=== PATIENT | female | born 1950 | race Caucasian/White ===

== ENCOUNTER 2022-01-24 17:54 | Inpatient (IN) | payer MEDICARE, MEDICAID ==
[~2022-01-24] VITALS: Ht 165.1 cm; Wt 62.6 kg
[2022-01-24 19:32] LABS: BASOPHILS % 0.4 % (0.0-2.0); EOSINOPHILS % 0.2 % (0.0-5.0); HEMATOCRIT. 48.4 % (36.0-48.0); HEMOGLOBIN. 17.1 g/dL (12.0-16.0); MEAN CORPUSCULAR HEMOGLOBIN 32.2 pg (28.0-32.0); MEAN CORPUSCULAR VOLUME 90.8 fL (81.0-99.0); MEAN PLATELET VOLUME 7.2 fl (7.4-10.4); MONOCYTES % 4.9 % (2.0-8.0); NEUTROPHILS % 83.5 % (40.0-76.0); PLATELET 429 x1000/uL (130-400); RED BLOOD CELL COUNT 5.32 mill/uL (4.2-5.4); RED CELL DISTRIBUTION WIDTH 13.4 % (11.6-14.6)
[2022-01-24 19:41] LABS: CHLORIDE 98 mEq/L (98-107)
[2022-01-24] MEDS ORDERED: MAGNESIUM HYDROXIDE 400MG/5ML 30ML UDC PO ONE (20:00)
[2022-01-24] MEDS ORDERED: MINERAL OIL 30ML BOTTLE PO ONE (20:00)
[2022-01-24] MEDS ORDERED: SODIUM CHLORIDE 0.9% 1,000 ML IV ONE (20:00)
[2022-01-24] MEDS ORDERED: MAGNESIUM CITRATE 300ML SOLUTION PO ONE (20:00)
[2022-01-24] MEDS ORDERED: POTASSIUM CHLORIDE INJ 40 MEQ in DEXT 5% WATER 500 ML IV ONE (20:00)
[2022-01-25] MEDS ORDERED: MAGNESIUM HYDROXIDE 400MG/5ML 30ML UDC PO NR (01:00)
[2022-01-25] MEDS ORDERED: GUAIFENESIN 200MG/10ML SUGAR FREE UDC PO PRN (04:00)
[2022-01-25] MEDS ORDERED: HYDRALAZINE 20MG/ML VIAL IV PRN (04:00)
[2022-01-25] MEDS ORDERED: ONDANSETRON HCL 4MG/2ML INJ IV PRN (04:00)
[2022-01-25] MEDS ORDERED: ACETAMINOPHEN 325MG TABLET PO PRN (04:00)
[2022-01-25] MEDS ORDERED: TRAZODONE HCL 50MG TABLET PO PRN (04:15)
[2022-01-25 04:39] VITALS: BP 155/94
[2022-01-25] MEDS ORDERED: DIGO125T80 MT (05:41)
[2022-01-25] MEDS ORDERED: INSU100I28 SQ (05:41)
[2022-01-25] MEDS ORDERED: ATOR20TA MT (05:41)
[2022-01-25] MEDS ORDERED: DILT60TA3 MT (05:41)
[2022-01-25] MEDS ORDERED: ASPI-1497 MT (05:41)
[2022-01-25] MEDS ORDERED: METH-371 MT (05:41)
[2022-01-25] MEDS ORDERED: KEPP500 MT (05:41)
[2022-01-25] MEDS ORDERED: LACTATED RINGERS 1,000 ML IV SCH (06:30)
[2022-01-25 08:00] VITALS: BP 166/71
[2022-01-25 08:30] LABS: BASOPHILS % 0.3 % (0.0-2.0); EOSINOPHILS % 0.2 % (0.0-5.0); HEMATOCRIT. 50.1 % (36.0-48.0); HEMOGLOBIN. 17.1 g/dL (12.0-16.0); LYMPHOCYTES % 12.7 % (20.0-50.0); MEAN CORPUSCULAR HEMOGLOBIN 31.7 pg (28.0-32.0); MEAN CORPUSCULAR VOLUME 92.7 fL (81.0-99.0); MEAN PLATELET VOLUME 7.4 fl (7.4-10.4); MONOCYTES % 5.4 % (2.0-8.0); NEUTROPHILS % 81.4 % (40.0-76.0); PLATELET 387 x1000/uL (130-400); RED BLOOD CELL COUNT 5.41 mill/uL (4.2-5.4); RED CELL DISTRIBUTION WIDTH 13.4 % (11.6-14.6)
[2022-01-25 08:50] LABS: CHLORIDE 100 mEq/L (98-107)
[2022-01-25] MEDS: BISACODYL 10MG SUPP PR SCH ×2 (09:00→09:39)
[2022-01-25] MEDS ORDERED: POTASSIUM CHLORIDE 20MEQ TABLET SR PO NR (11:30)
[2022-01-25] MEDS ORDERED: LACTULOSE 20G/30ML UDC PO PRN (11:30)
[2022-01-25 12:00] VITALS: BP 148/83
[2022-01-25] MEDS ORDERED: BISACODYL 10MG SUPP PR NR (12:00)
[2022-01-25] MEDS ORDERED: ENOXAPARIN 30MG/0.3ML SYR SUBCUT SCH (12:00)
[2022-01-25] MEDS: SODIUM CHLORIDE 0.45% 1,000 ML IV SCH (13:18)
[2022-01-25 16:00] VITALS: BP 146/95
[2022-01-25] MEDS ORDERED: LEVE500T98 PO (17:44)
[2022-01-25] MEDS ORDERED: METH-371 PO (17:44)
[2022-01-25 20:00] VITALS: BP 136/101
[2022-01-25] MEDS ORDERED: DEXTROSE 50% WATER 50ML SYRINGE IV PRN (21:00)
[2022-01-25] MEDS: IPRATROPIUM/ALBUTEROL 0.5-3(2.5)MG/3ML NEB HHN SCH (21:05)
[2022-01-25] MEDS: ATORVASTATIN CALCIUM 20MG TABLET PO SCH (21:51)
[2022-01-25] MEDS: LEVETIRACETAM 500MG TABLET PO SCH (21:52)
[2022-01-25] MEDS: BLOOD SUGAR DIAGNOSTIC STRIP TEST SCH (21:52)
[2022-01-25] MEDS: INSULIN LISPRO 100 UNITS/ML SUBCUT SCH (21:55)
[2022-01-25] MEDS: DILTIAZEM HCL 60MG TABLET PO SCH (21:56)
[2022-01-25] MEDS: METHIMAZOLE 5MG TABLET PO SCH (21:57)
[2022-01-26] VITALS: BP 158/77
[2022-01-26] MEDS: IPRATROPIUM/ALBUTEROL 0.5-3(2.5)MG/3ML NEB HHN SCH ×5 (00:54→20:47)
[2022-01-26] MEDS: ENOXAPARIN 60MG/0.6ML SYR SUBCUT SCH ×2 (01:02→21:33)
[2022-01-26 04:00] VITALS: BP 137/68
[2022-01-26] MEDS: SODIUM CHLORIDE 0.45% 1,000 ML IV SCH ×2 (05:26→21:05)
[2022-01-26] MEDS: DILTIAZEM HCL 60MG TABLET PO SCH ×3 (05:32→22:37)
[2022-01-26] MEDS: BLOOD SUGAR DIAGNOSTIC STRIP TEST SCH ×4 (06:59→21:18)
[2022-01-26] MEDS: INSULIN LISPRO 100 UNITS/ML SUBCUT SCH ×4 (07:50→21:19)
[2022-01-26 08:00] VITALS: BP 132/68
[2022-01-26] MEDS: BISACODYL 10MG SUPP PR SCH (09:00)
[2022-01-26] MEDS: ASPIRIN 81MG TABLET PO SCH (09:23)
[2022-01-26] MEDS: LEVETIRACETAM 500MG TABLET PO SCH ×2 (09:23→21:18)
[2022-01-26 10:45] LABS: HEMOGLOBIN. 16.8 g/dL (12.0-16.0); MEAN CORPUSCULAR HEMOGLOBIN 32.1 pg (28.0-32.0); MEAN CORPUSCULAR VOLUME 93.5 fL (81.0-99.0); MEAN PLATELET VOLUME 7.5 fl (7.4-10.4); PLATELET 450 x1000/uL (130-400); RED BLOOD CELL COUNT 5.24 mill/uL (4.2-5.4)
[2022-01-26 12:00] VITALS: BP 109/63
[2022-01-26 13:30] LABS: PLATELET ESTIMATE INCREASED
[2022-01-26] MEDS: METHIMAZOLE 5MG TABLET PO SCH (14:03)
[2022-01-26 16:00] VITALS: BP 138/75
[2022-01-26] MEDS: DIGOXIN 125MCG TABLET PO SCH (18:54)
[2022-01-26 20:00] VITALS: BP 146/69
[2022-01-26] MEDS: ATORVASTATIN CALCIUM 20MG TABLET PO SCH (21:18)
[2022-01-27] VITALS: BP 141/70
[2022-01-27] MEDS: IPRATROPIUM/ALBUTEROL 0.5-3(2.5)MG/3ML NEB HHN SCH ×5 (00:21→20:27)
[2022-01-27 02:35] LABS: CLARITY URINE TURBID (CLEAR); COLOR URINE DARK YELLOW (YELLOW); KETONES URINE NEGATIVE (NEGATIVE); LEUKOCYTE ESTERASE URINE 3+ (NEGATIVE); NITRITE URINE NEGATIVE (NEGATIVE); OCCULT BLOOD URINE 2+ (NEGATIVE); PROTEIN URINE 4+ (NEGATIVE); SPECIFIC GRAVITY URINE 1.021 (1.005-1.030)
[2022-01-27 04:00] VITALS: BP 120/86
[2022-01-27] MEDS: DILTIAZEM HCL 60MG TABLET PO SCH ×3 (05:17→21:31)
[2022-01-27] MEDS: BLOOD SUGAR DIAGNOSTIC STRIP TEST SCH ×4 (06:04→21:31)
[2022-01-27 06:37] LABS: HEMOGLOBIN. 15.5 g/dL (12.0-16.0); LYMPHOCYTES % 7.7 % (20.0-50.0); MEAN CORPUSCULAR VOLUME 92.9 fL (81.0-99.0); MEAN PLATELET VOLUME 7.9 fl (7.4-10.4); MONOCYTES % 7.1 % (2.0-8.0); NEUTROPHILS % 85.2 % (40.0-76.0); PLATELET 408 x1000/uL (130-400); RED BLOOD CELL COUNT 4.85 mill/uL (4.2-5.4); RED CELL DISTRIBUTION WIDTH 14.2 % (11.6-14.6)
[2022-01-27 06:48] LABS: CHLORIDE 94 mEq/L (98-107)
[2022-01-27] MEDS: INSULIN LISPRO 100 UNITS/ML SUBCUT SCH ×4 (07:25→21:33)
[2022-01-27 08:00] VITALS: BP 111/89
[2022-01-27] MEDS: BISACODYL 10MG SUPP PR SCH (09:00)
[2022-01-27] MEDS: LEVETIRACETAM 500MG TABLET PO SCH ×2 (09:04→21:31)
[2022-01-27] MEDS: ASPIRIN 81MG TABLET PO SCH (09:05)
[2022-01-27] MEDS: METHIMAZOLE 5MG TABLET PO SCH (09:05)
[2022-01-27] MEDS ORDERED: CEFTRIAXONE 1 G PREMIX 50 ML IV SCH (10:30)
[2022-01-27 12:00] VITALS: BP 101/56
[2022-01-27] MEDS: SODIUM CHLORIDE 0.9% 1,000 ML IV SCH ×2 (12:48→21:34)
[2022-01-27] MEDS: CEFTRIAXONE 1,000 MG in DEXTROSE 5% WATER 50 ML IV SCH (12:48)
[2022-01-27 16:00] VITALS: BP 110/81
[2022-01-27] MEDS ORDERED: CLOTRIMAZOLE 1% CREAM 15GM TOP ONE (16:45)
[2022-01-27] MEDS: DIGOXIN 125MCG TABLET PO SCH (18:05)
[2022-01-27] MEDS: CLOTRIMAZOLE 1% CREAM 15GM TOP SCH (18:06)
[2022-01-27 18:48] LABS: PROTHROMBIN TIME 10.5 sec (9.6-11.0)
[2022-01-27 20:00] VITALS: BP 146/66
[2022-01-27] MEDS: ENOXAPARIN 60MG/0.6ML SYR SUBCUT SCH (21:24)
[2022-01-27] MEDS: ATORVASTATIN CALCIUM 20MG TABLET PO SCH (21:31)
[2022-01-27] MEDS: INSULIN GLARGINE 100 UNITS/ML SUBCUT SCH (21:34)
[2022-01-28] VITALS: BP 148/34
[2022-01-28] MEDS: IPRATROPIUM/ALBUTEROL 0.5-3(2.5)MG/3ML NEB HHN SCH ×6 (00:42→21:08)
[2022-01-28 04:00] VITALS: BP 130/39
[2022-01-28] MEDS: SODIUM CHLORIDE 0.9% 1,000 ML IV SCH ×2 (06:00→16:45)
[2022-01-28] MEDS: DILTIAZEM HCL 60MG TABLET PO SCH ×3 (06:00→21:33)
[2022-01-28] MEDS: BLOOD SUGAR DIAGNOSTIC STRIP TEST SCH ×4 (06:01→21:32)
[2022-01-28] MEDS: INSULIN LISPRO 100 UNITS/ML SUBCUT SCH ×4 (07:50→21:56)
[2022-01-28 08:00] VITALS: BP 143/55
[2022-01-28] MEDS: BISACODYL 10MG SUPP PR SCH (08:03)
[2022-01-28] MEDS: ASPIRIN 81MG TABLET PO SCH (08:30)
[2022-01-28] MEDS: LEVETIRACETAM 500MG TABLET PO SCH ×2 (08:30→21:32)
[2022-01-28] MEDS: METHIMAZOLE 5MG TABLET PO SCH (08:30)
[2022-01-28] MEDS: CLOTRIMAZOLE 1% CREAM 15GM TOP SCH (08:39)
[2022-01-28 11:23] LABS: HEMATOCRIT. 44.1 % (36.0-48.0); HEMOGLOBIN. 14.5 g/dL (12.0-16.0); MEAN CORPUSCULAR HEMOGLOBIN 31.6 pg (28.0-32.0); MEAN CORPUSCULAR VOLUME 95.8 fL (81.0-99.0); MEAN PLATELET VOLUME 7.9 fl (7.4-10.4); PLATELET 353 x1000/uL (130-400); RED CELL DISTRIBUTION WIDTH 14.3 % (11.6-14.6)
[2022-01-28 11:37] LABS: CHLORIDE 94 mEq/L (98-107)
[2022-01-28 12:00] VITALS: BP 126/80
[2022-01-28 12:59] LABS: PLATELET ESTIMATE NORMAL
[2022-01-28] MEDS: CEFTRIAXONE 1,000 MG in DEXTROSE 5% WATER 50 ML IV SCH (14:27)
[2022-01-28 16:00] VITALS: BP 132/47
[2022-01-28 20:00] VITALS: BP 146/53
[2022-01-28] MEDS ORDERED: ENOXAPARIN 60MG/0.6ML SYR SUBCUT SCH ×2 (21:00)
[2022-01-28] MEDS: ATORVASTATIN CALCIUM 20MG TABLET PO SCH (21:32)
[2022-01-28] MEDS: SUCRALFATE 1 G/10 ML UDC PO SCH (21:32)
[2022-01-28] MEDS: INSULIN GLARGINE 100 UNITS/ML SUBCUT SCH (21:57)
[2022-01-29] VITALS: BP 140/50
[2022-01-29] MEDS: IPRATROPIUM/ALBUTEROL 0.5-3(2.5)MG/3ML NEB HHN SCH ×5 (00:46→16:21)
[2022-01-29] MEDS: SODIUM CHLORIDE 0.9% 1,000 ML IV SCH (02:56)
[2022-01-29 04:00] VITALS: BP 138/51
[2022-01-29] MEDS: SUCRALFATE 1 G/10 ML UDC PO SCH ×3 (05:33→17:20)
[2022-01-29] MEDS: DILTIAZEM HCL 60MG TABLET PO SCH ×2 (05:33→14:57)
[2022-01-29] MEDS: BLOOD SUGAR DIAGNOSTIC STRIP TEST SCH ×3 (06:49→17:20)
[2022-01-29] MEDS: INSULIN LISPRO 100 UNITS/ML SUBCUT SCH ×4 (07:50→20:09)
[2022-01-29 08:00] VITALS: BP 165/54
[2022-01-29] MEDS: METHIMAZOLE 5MG TABLET PO SCH (08:57)
[2022-01-29] MEDS: LEVETIRACETAM 500MG TABLET PO SCH (08:57)
[2022-01-29] MEDS: ASPIRIN 81MG TABLET PO SCH (08:57)
[2022-01-29] MEDS: BISACODYL 10MG SUPP PR SCH (08:58)
[2022-01-29] MEDS: CLOTRIMAZOLE 1% CREAM 15GM TOP SCH (09:00)
[2022-01-29 09:32] LABS: HEMATOCRIT. 40.2 % (36.0-48.0); HEMOGLOBIN. 13.3 g/dL (12.0-16.0); MEAN CORPUSCULAR HEMOGLOBIN 31.2 pg (28.0-32.0); MEAN PLATELET VOLUME 7.3 fl (7.4-10.4); PLATELET 285 x1000/uL (130-400); RED BLOOD CELL COUNT 4.28 mill/uL (4.2-5.4); RED CELL DISTRIBUTION WIDTH 13.9 % (11.6-14.6)
[2022-01-29 09:52] LABS: CHLORIDE 95 mEq/L (98-107)
[2022-01-29 10:14] LABS: DIGOXIN 2.5 ng/mL (0.9-2.0)
[2022-01-29 12:00] VITALS: BP 135/56
[2022-01-29] MEDS: CEFTRIAXONE 1,000 MG in DEXTROSE 5% WATER 50 ML IV SCH (14:57)
[2022-01-29 16:00] VITALS: BP 139/59
[2022-01-29] MEDS ORDERED: APIXABAN 5 MG TABLET PO SCH (17:00)
[2022-01-29 17:22] LABS: PLATELET ESTIMATE NORMAL
[2022-01-29] MEDS ORDERED: DIGOXIN 125MCG TABLET PO SCH (18:00)
[2022-01-29 19:37] VITALS: BP 139/59
== END 2022-01-29 20:40 | disposition home health service (06) | DRG 853 ==
LOC: EDBD 17:54 → ER 17:54 → 6WST 01-25 00:23 → EDBEDREQ 01-25 00:46 → ENRESERV 01-25 02:38
PROVIDERS: ADMIT Internal Medicine; ATTEND Hospitalist
PROC: 0LBW0ZZ Excision of Left Foot Tendon, Open Approach (ICD-10-PCS; principal; 2022-01-25)
DX: A41.9 Sepsis, unspecified organism (principal); L89.624 Pressure ulcer of left heel, stage 4; E43 Unspecified severe protein-calorie malnutrition; E87.1 Hypo-osmolality and hyponatremia; N17.9 Acute kidney failure, unspecified; I82.621 Acute embolism and thrombosis of deep veins of right upper extremity; J90 Pleural effusion, not elsewhere classified; N13.4 Hydroureter; I69.351 Hemiplegia and hemiparesis following cerebral infarction affecting right dominant side; K56.41 Fecal impaction; E87.6 Hypokalemia; E88.09 Other disorders of plasma-protein metabolism, not elsewhere classified; I48.91 Unspecified atrial fibrillation; D72.829 Elevated white blood cell count, unspecified; R60.1 Generalized edema; N20.0 Calculus of kidney; I10 Essential (primary) hypertension; K43.9 Ventral hernia without obstruction or gangrene; K52.9 Noninfective gastroenteritis and colitis, unspecified; Z79.01 Long term (current) use of anticoagulants; Z79.4 Long term (current) use of insulin; Z79.82 Long term (current) use of aspirin; Z99.3 Dependence on wheelchair; Z68.23 Body mass index [BMI] 23.0-23.9, adult; E11.9 Type 2 diabetes mellitus without complications; Z95.828 Presence of other vascular implants and grafts
CPT/HCPCS: 36415; 71045; 74018; 74176; 76770; 80048; 80053; 80162; 81003; 82962; 83036; 83735; 84145; 84439; 84443; 85025; 93005; 93923; 93971; 94640; 99285; J0360; J0696; J1650; J1815; J2405; J3480; J7030; J7060; J7120